=== PATIENT | female | born 1945 | race Caucasian/White ===

== ENCOUNTER 2017-03-31 14:38 | Inpatient (IN) | payer OTHER ==
[~2017-03-31] VITALS: Ht 161.3 cm; Wt 77.9 kg
[2017-03-31 18:29] LABS: HEMATOCRIT 35.9 % (36.0-46.0); MCHC 33.4 G/DL (30.0-36.0); MCV 92.8 FL (83-99); PLATELET COUNT 189 K/uL (156-360); RBC DIS.WIDTH-CV 12.5 % (11.8-14.6); RBC DIS.WIDTH-SD 42.5 % (39-53); RED BLOOD COUNT 3.87 M/uL (3.80-5.20); WHITE BLOOD COUNT 4.9 K/uL (4.1-10.2)
[2017-03-31 18:45] LABS: CHLORIDE 106 mEq/L (99-109); POTASSIUM 4.2 mEq/L (3.7-5.4); SODIUM 142 mEq/L (136-147)
[2017-03-31 18:46] LABS: GLUCOSE 98 mg/dL (70-99)
[2017-03-31 18:48] LABS: ANION GAP 10 MEQ/L (2-14)
[2017-03-31 18:50] LABS: GFR ESTIMATE (CALCULATED) > 59 mL/min/
[2017-03-31 18:51] LABS: UREA NITROGEN (BUN) 18 mg/dL (9-23)
[2017-03-31] MEDS ORDERED: ACETAMINOPHEN-1 EAC1 PO (19:00)
[2017-03-31] MEDS ORDERED: PRAVASTATIN SOD40 MG PO (19:01)
[2017-03-31] MEDS ORDERED: ATARAX,VISTARIL50 MG PO (19:02)
[2017-03-31] MEDS ORDERED: GABAPENTIN300 MG PO (19:02)
[2017-03-31] MEDS ORDERED: ZAFIRLUKAST10 MG PO (19:03)
[2017-03-31] MEDS ORDERED: CALTRATE 600+D1 EAC1 PO (19:04)
[2017-03-31] MEDS ORDERED: [UNRECOGNIZED DRUG - OTHER] TP (19:05)
[2017-03-31] MEDS ORDERED: TUDORZA PRESS400 MCG IH (19:06)
[2017-03-31] MEDS ORDERED: HYDROCODON-ACE1 EAC9 PO (19:09)
[2017-03-31 23:16] LABS: ADD MIUA? YES; BILIRUBIN NEGATIVE; BLOOD SMALL; COLOR YELLOW ((YELLOW)); GLUCOSE (STRIP) NEGATIVE; KETONES NEGATIVE; LEUKOCYTES SMALL; NITRITE NEGATIVE; PROTEIN (STRIP) NEGATIVE; SPECIFIC GRAVITY 1.017 (1.000-1.030); UROBILINOGEN 0.2 MG/DL (0.2-1.0)
[2017-03-31 23:40] LABS: BACTERIA RARE /HPF; EPITHELIAL CELLS 1+ /HPF; MUCUS TRACE /LPF; UCUL ADDED? YES; WHITE BLOOD CELLS 20-30 /HPF (0-5)
[2017-03-31 23:50] VITALS: BP 172/75
[2017-04-01] VITALS (7 sets, daily range): BP systolic 117–172; BP diastolic 56–88
[2017-04-01 07:16] LABS: PROTHROMBIN TIME 11.2 SEC (10.2-12.9)
[2017-04-01 07:19] LABS: PTT 26.6 SEC (25-37)
[2017-04-02 08:08] VITALS: BP 143/64
[2017-04-02 16:09] VITALS: BP 124/60
[2017-04-02 19:12] VITALS: BP 152/73
[2017-04-03 00:02] VITALS: BP 117/56
[2017-04-03 03:28] VITALS: BP 131/62
[2017-04-03 08:15] VITALS: BP 179/84
[2017-04-03 11:56] VITALS: BP 152/69
[2017-04-03 16:09] VITALS: BP 135/64
[2017-04-03 19:49] VITALS: BP 157/81
[2017-04-04] VITALS (7 sets, daily range): BP systolic 115–160; BP diastolic 56–78
[2017-04-04 06:39] LABS: MCH 30.9 PG (29.0-34.0); MCHC 32.7 G/DL (30.0-36.0); MCV 94.6 FL (83-99); MEAN PLAT.VOLUME 9.3 uM^3 (9.5-12.4); NRBC (%) 0.8 /100 WBC (0-0); PLATELET COUNT 205 K/uL (156-360); RBC DIS.WIDTH-CV 12.8 % (11.8-14.6); RED BLOOD COUNT 3.49 M/uL (3.80-5.20); WHITE BLOOD COUNT 5.9 K/uL (4.1-10.2)
[2017-04-04 07:04] LABS: ANION GAP 6 MEQ/L (2-14); CHLORIDE 106 MEQ/L (99-109); GFR ESTIMATE (CALCULATED) > 59 mL/min/; GLUCOSE 94 mg/dL (70-99); POTASSIUM 4.1 MEQ/L (3.7-5.4); SAMPLE HEMOLYSIS CHECK 0; SAMPLE ICTERIC CHECK 0; SAMPLE LIPEMIA CHECK 0; SODIUM 142 MEQ/L (136-147); UREA NITROGEN (BUN) 22 mg/dL (9-23)
[2017-04-04 07:06] LABS: TROP-I INTERPRETATION NEGATIVE; TROPONIN-I < 0.01 ng/mL (0.0-0.30)
[2017-04-05 06:35] LABS: MCH 32.1 PG (29.0-34.0); MCHC 34.2 G/DL (30.0-36.0); MCV 93.9 FL (83-99); MEAN PLAT.VOLUME 9.5 uM^3 (9.5-12.4); NRBC (%) 0.4 /100 WBC (0-0); PLATELET COUNT 234 K/uL (156-360); RBC DIS.WIDTH-CV 12.7 % (11.8-14.6); RBC DIS.WIDTH-SD 43.2 % (39-53); WHITE BLOOD COUNT 7.1 K/uL (4.1-10.2)
[2017-04-05 07:01] LABS: TROP-I INTERPRETATION NEGATIVE; TROPONIN-I < 0.01 ng/mL (0.0-0.30)
[2017-04-05 07:09] LABS: ANION GAP 7 MEQ/L (2-14); CHLORIDE 105 MEQ/L (99-109); GFR ESTIMATE (CALCULATED) > 59 mL/min/; GLUCOSE 150 mg/dL (70-99); POTASSIUM 4.5 MEQ/L (3.7-5.4); SAMPLE HEMOLYSIS CHECK 0; SAMPLE ICTERIC CHECK 0; SAMPLE LIPEMIA CHECK 0; SODIUM 140 MEQ/L (136-147); UREA NITROGEN (BUN) 19 mg/dL (9-23)
[2017-04-05 08:27] VITALS: BP 142/63
[2017-04-05] MEDS ORDERED: VITAMIN D-32000 UNI2 PO (11:05)
[2017-04-05] MEDS ORDERED: SUPER B-50 COM1 EACH PO (11:05)
[2017-04-05] MEDS ORDERED: ACETAMINOPHEN-1 EAC1 PO (11:06)
== END 2017-04-05 14:15 | disposition home or self-care (01) | DRG 517 ==
LOC: EME 14:38 → EDOF 19:55 → 3EAST 19:55 → ENRESERV 19:56 → 3EAST 23:42
PROVIDERS: Emergency Medicine; Hospitalist; Nurse Practitioner Family; Physician Assistant
DX: S32.039A Unspecified fracture of third lumbar vertebra, initial encounter for closed fracture (principal); J84.10 Pulmonary fibrosis, unspecified; M54.9 Dorsalgia, unspecified; W18.30XA Fall on same level, unspecified, initial encounter; M81.0 Age-related osteoporosis without current pathological fracture; E78.5 Hyperlipidemia, unspecified; M54.30 Sciatica, unspecified side; F41.9 Anxiety disorder, unspecified; M54.16 Radiculopathy, lumbar region; J45.909 Unspecified asthma, uncomplicated; M19.90 Unspecified osteoarthritis, unspecified site; M48.06 Spinal stenosis, lumbar region; I10 Essential (primary) hypertension; K59.00 Constipation, unspecified; E66.3 Overweight; G89.29 Other chronic pain; R53.1 Weakness; Z79.899 Other long term (current) drug therapy; Z68.29 Body mass index [BMI] 29.0-29.9, adult
CPT/HCPCS: 71020; 80048; 81003; 84484; 85027; 85610; 85730; 87086; 93005; 94640; 94640 76; 99281; 99285; J0330; J0690; J1100; J1170; J1644; J1885; J2060; J2250; J2270; J2405; J3010; J7030; J7120; Q0177